=== PATIENT | female | born 1965 | race Hispanic/Latino ===

== ENCOUNTER 2017-12-22 08:48 | Day surgery (SDC) | payer MEDICARE ==
[2017-12-14 11:57] VITALS: BMI 18.3
[2017-12-22] MEDS ORDERED: Propofol 10 mg/ml Inj (20 ML) ONE (10:59)
[2017-12-22] MEDS ORDERED: Sodium Chloride 0.9% 1,000 ML IV SCH (12:00)
[2017-12-22 12:40] VITALS: BP 96/67; PULSE 86; RESP 16; TEMP 97.6; O2SAT 95
== END 2017-12-22 14:26 | disposition home or self-care (01) ==
LOC: ENDO 08:48
PROVIDERS: ATTEND Internal Medicine Gastroenterology
DX: Z12.11 Encounter for screening for malignant neoplasm of colon (principal); D12.8 Benign neoplasm of rectum; K25.9 Gastric ulcer, unspecified as acute or chronic, without hemorrhage or perforation; D13.0 Benign neoplasm of esophagus; K29.50 Unspecified chronic gastritis without bleeding; K20.9 Esophagitis, unspecified; K64.4 Residual hemorrhoidal skin tags; K64.8 Other hemorrhoids; R63.0 Anorexia; R63.4 Abnormal weight loss; Z68.1 Body mass index [BMI] 19.9 or less, adult
CPT/HCPCS: 43239; 45380; 88305; 88312; 88342; J2704; J7040 ×2

== ENCOUNTER 2019-01-07 14:52 | Outpatient (CLI) | payer MEDICARE | END 2019-01-07 14:53 | disposition home or self-care (01) | LOC: RAD 14:52 ==